=== PATIENT | male | born 1985 | race African-American/Black ===

== ENCOUNTER 2020-10-03 16:33 | Emergency (ER) | payer OTHER ==
[~2020-10-03] VITALS: Ht 180.3 cm; Wt 108.0 kg
[2020-10-03 18:17] VITALS: BP 133/59
== END 2020-10-03 18:18 | disposition home or self-care (01) ==
LOC: M ED 16:33
DX: Z20.822 Contact with and (suspected) exposure to COVID-19 (principal)
CPT/HCPCS: 99283; U0003

== ENCOUNTER 2020-11-14 20:43 | Emergency (ER) | payer OTHER ==
[~2020-11-14] VITALS: Ht 177.8 cm; Wt 111.0 kg
[2020-11-14] MEDS ORDERED: ACET-683 PO (20:59)
[2020-11-15] MEDS ORDERED: METHOCARBAMOL 1,000 MG/10 ML VIAL (J2800) IV ONE (03:05)
[2020-11-15] MEDS ORDERED: KETOROLAC 30 MG/ML 1ML VIAL IV ONE (03:05)
[2020-11-15 05:09] VITALS: BP 108/65
--- NOTE | 2020-11-15 07:59 | REPVR ---
PROCEDURE INFORMATION: Exam: MR Lumbar Spine Without Contrast Exam date and time: 11/15/2020 7:30 AM Age: 35 years old Clinical indication: Low back pain; Additional info: Saddle parethesia, R/O cauda equina TECHNIQUE: Imaging protocol: Multiplanar magnetic resonance images of the lumbar spine without intravenous contrast. COMPARISON: No relevant prior studies available. FINDINGS: Vertebrae: There is normal alignment of the visualized spine. Spinal cord: The conus medullaris terminates at the T12-L1 level. The distal cord appears unremarkable. T12-L1: Unremarkable. L1-L2: There is no disc bulge or herniation. The facet joints appear normal. No central or foraminal narrowing. L2-L3: There is no disc bulge or herniation. The facet joints appear normal. No central or foraminal narrowing. L3-L4: There is no disc bulge or herniation. The facet joints appear normal. No central or foraminal narrowing. L4-L5: There is no disc bulge or herniation. There is mild hypertrophy of the facet joints. There is no significant central canal stenosis. There is mild right neural foraminal narrowing. L5-S1: The disc is desiccated and mildly narrowed. There is a diffuse bulge and a large central disc protrusion with associated hyperintense signal peripherally in the disc consistent with an annular tear. There is mild hypertrophy of the bilateral facet joints. The central narrowing is mild but the protruded disc contacts the bilateral S1 nerve root in the lateral recess. There is mild bilateral neural foraminal narrowing. Soft tissues: The prevertebral soft tissues appear normal. There is nonspecific mild subcutaneous tissue edema in the midline posteriorly in the upper lumbar region. The paraspinous musculature appears unremarkable. IMPRESSION: Mild narrowing of the L5-S1 disc with large central disc protrusion which results in little central canal stenosis but contacts the bilateral S1 nerve roots in the lateral recesses. Electronically signed by: Cindy Brush On 11/15/2020 07:59:15 AM
--- NOTE | 2020-11-15 12:08 | ED PDOC ---
Post-Departure Follow-Up mri ls spine faxed to [facility] for fu Fadumo Harris MD Nov 15, 2020 12:08
== END 2020-11-15 08:42 | disposition home or self-care (01) ==
LOC: M ED 20:43
DX: M51.9 Unspecified thoracic, thoracolumbar and lumbosacral intervertebral disc disorder (principal); G89.29 Other chronic pain
CPT/HCPCS: 72148; 96374; 96375; 99284; J1885; J2800

== ENCOUNTER → 2021-07-29 | Outpatient (CLI) | payer OTHER ==
[~2021-07-29] MED LIST: ACET-683 PO
== END ==
LOC: M RAD 11:11
PROVIDERS: ATTEND Physician Assistant
DX: M51.36 Other intervertebral disc degeneration, lumbar region (principal)